=== PATIENT | male | born 2000 | race African-American/Black ===

== ENCOUNTER 2019-03-05 23:56 | Emergency (ER) | payer OTHER ==
[~2019-03-05] VITALS: Ht 170.2 cm; Wt 61.2 kg
[2019-03-06] VITALS: BP 137/65
[2019-03-06] MEDS ORDERED: IBUPROFEN 600 MG TABLET. PO ONE (00:45)
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
== END 2019-03-06 00:50 | disposition home or self-care (01) ==
LOC: ER 23:56
DX: S01.01XA Laceration without foreign body of scalp, initial encounter (principal); W22.8XXA Striking against or struck by other objects, initial encounter; Y93.89 Activity, other specified; Y92.89 Other specified places as the place of occurrence of the external cause; Y99.8 Other external cause status
CPT/HCPCS: 12001; 99283